=== PATIENT | female | born 1985 | race Two or more races ===

== ENCOUNTER 2017-04-28 12:14 | Emergency (ER) | payer MEDICAID ==
[~2017-04-28] VITALS: Ht 167.6 cm; Wt 99.8 kg
--- NOTE | 2017-04-28 12:14 | NUR ---
DIZZINESS X 3 DAYS,ON BACTRIM FOR A KIDNEY INFECTION DIAGNOSED 3 DAYS AGO. PLACED ON MONITOR. AWAITING MD ORDER
[2017-04-28] MEDS ORDERED: MORPHINE SULFATE INJ 4 MG/ML DISP.SYRIN ONE (13:16)
[2017-04-28] MEDS ORDERED: ONDANSETRON HCL/PF 4 MG/2 ML VIAL ONE (13:16)
[2017-04-28 13:18] LABS: APPEARANCE,URINE Hazy (CLEAR); BILIRUBIN,URINE SMALL (NEGATIVE); BLOOD, URINE Large Ery/uL (NEGATIVE); COLOR,URINE Yellow (YELLOW); KETONES,URINE 40 (NEGATIVE); LEUKOCYTE ESTERASE ,URINE Small (NEGATIVE); NITRITE, URINE Negative (NEGATIVE); PROTEIN,URINE Negative (NEGATIVE); UGLUCOSE Negative (NEGATIVE)
[2017-04-28 13:19] LABS: PREGNANCY TEST URINE QUAL NEGATIVE (NEGATIVE)
--- NOTE | 2017-04-28 13:20 | NUR ---
KIMBER[facility] #20 IV ACCESS. BLOOD SAMPLE COLLECTED SENT TO LAB
[2017-04-28 13:24] LABS: BASOPHILS % (AUTO) 0.3 % (0.0-2.0); EOSINOPHILS # (AUTO) 0.1 /CMM (0.0-0.7); EOSINOPHILS % (AUTO) 0.7 % (0.0-6.0); HEMATOCRIT 43 % (33-45); HEMOGLOBIN 14.2 g/dL (11.5-14.8); LYMPHOCYTES # (AUTO) 2.1 /CMM (0.8-4.8); LYMPHOCYTES % (AUTO) 26.4 % (20.0-44.0); MEAN CORPUSCULAR HEMOGLOBIN 31 PG (26.0-33.0); MEAN CORPUSCULAR HGB CONC 33 g/dl (31.0-36.0); MEAN CORPUSCULAR VOLUME 94 fL (82-100); MONOCYTES # (AUTO) 0.5 /CMM (0.1-1.30); MONOCYTES % (AUTO) 5.8 % (2.0-12.0); NEUTROPHILS # (AUTO) 5.4 /CMM (1.8-8.9); NEUTROPHILS % (AUTO) 66.8 % (43.0-81.0); PLATELET COUNT (AUTO) 147 /CMM (150-450); RDW COEFFICIENT OF VARIATION 13.2 (11.5-15.0); RED BLOOD CELL COUNT(AUTO) 4.56 MIL/uL (4.0-5.2); WHITE BLOOD COUNT (AUTO) 8.1 K/uL (4.3-11.0)
[2017-04-28] MEDS ORDERED: ONDANSETRON HCL/PF 4 MG/2 ML VIAL IVP ONE (13:30)
[2017-04-28] MEDS ORDERED: MORPHINE SULFATE INJ 2 MG/ML DISP.SYRIN IV ONE (13:30)
[2017-04-28] MEDS ORDERED: IV NS 0.9% 1,000 ML BAG IV ONE (13:30)
[2017-04-28 13:32] LABS: BACTERIA,URINE Few /HPF (None Seen); SQUAMOUS EPITHELIAL CELL,UR Few /HPF (None Seen)
[2017-04-28 13:33] LABS: CALCIUM, SERUM 8.6 mg/dL (8.5-10.1); CREATININE 0.8 mg/dL (0.6-1.3); POTASSIUM 3.6 mmol/L (3.5-5.1)
--- NOTE | 2017-04-28 13:35 | NUR ---
PT TAKEN TO CT
[2017-04-28 13:40] LABS: ALBUMIN 3.7 g/dL (3.4-5.0); BILIRUBIN,DIRECT 0.2 mg/dL (0.0-0.2); BILIRUBIN,TOTAL 0.5 mg/dL (0.2-1.0); TOTAL PROTEIN, SERUM 6.5 g/dL (6.4-8.2)
[2017-04-28] MEDS ORDERED: HYDROMORPHONE INJ 2 MG/ML DISP.SYRIN ONE (14:24)
[2017-04-28] MEDS ORDERED: HYDROMORPHONE 1 MG/1 ML DISP.SYRIN IV ONE (14:30)
--- NOTE | 2017-04-28 14:46 | NUR ---
Patient discharged to home in stable condition. Written and verbal after care instructions given. Patient verbalizes understanding of instruction.
--- NOTE | 2017-04-28 14:46 | NUR ---
IV removed. Catheter intact and site benign. Pressure and 4x4 applied to site. No bleeding noted.
[2017-04-28 14:50] VITALS: BP 125/78
== END 2017-04-28 14:51 | disposition home or self-care (01) ==
LOC: ER 12:20
DX: N39.0 Urinary tract infection, site not specified (principal); E03.9 Hypothyroidism, unspecified; Z98.84 Bariatric surgery status
CPT/HCPCS: 36415; 70450; 80048; 80076; 81001; 83690; 84703; 85025; 87086; 96361; 96374; 96375; 99285; A4606; J1170; J2270; J2405; J7030; Z7610; 81000-TC

== ENCOUNTER 2017-05-09 15:02 | Emergency (ER) | payer MEDICAID ==
[~2017-05-09] VITALS: Ht 167.6 cm; Wt 94.3 kg
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
[2017-05-09] MEDS ORDERED: HYDROCODONE/APAP 5/325MG 1 EACH TABLET ONE (15:59)
[2017-05-09] MEDS ORDERED: ONDANSETRON 4 MG TAB.RAPDIS ONE (15:59)
[2017-05-09] MEDS ORDERED: ONDANSETRON 4 MG TAB.RAPDIS PO ONE (16:00)
[2017-05-09] MEDS ORDERED: HYDROCODONE/APAP 5/325MG 1 EACH TABLET PO ONE (16:00)
--- NOTE | 2017-05-09 16:10 | NUR ---
PATIENT MEDICATED PER MD ORDERS.
--- NOTE | 2017-05-09 16:20 | NUR ---
PATIENT TAKEN TO CT VIA WHEELCHAIR.
--- NOTE | 2017-05-09 16:50 | NUR ---
PATIENT RETURNED FROM CT IN STABLE CONDITION.
[2017-05-09 18:14] VITALS: BP 128/84
--- NOTE | 2017-05-09 18:15 | NUR ---
Patient discharged to home in stable condition. Prescription handed to patient. Written and verbal after care instructions given. Patient verbalizes understanding of instruction.
== END 2017-05-09 18:15 | disposition home or self-care (01) ==
LOC: ER 15:13
DX: S00.432A Contusion of left ear, initial encounter (principal); R10.9 Unspecified abdominal pain; K44.9 Diaphragmatic hernia without obstruction or gangrene; K59.00 Constipation, unspecified; Z87.442 Personal history of urinary calculi; Z98.84 Bariatric surgery status; V43.52XA Car driver injured in collision with other type car in traffic accident, initial encounter; Y92.488 Other paved roadways as the place of occurrence of the external cause; Y93.89 Activity, other specified; Y99.8 Other external cause status
CPT/HCPCS: 70450-TC; 71250-TC; 73590-TC; A4606; Q0162; Z7610